=== PATIENT | male | born 1985 | race African-American/Black ===

== ENCOUNTER 2023-10-07 22:24 | Emergency (ER) | payer OTHER, SELFPAY ==
[2023-10-07] MEDS ORDERED: Acetaminophen 500 MG TAB ONE (22:45)
[2023-10-07] MEDS ORDERED: Ipratropium/Albuterol 3 ML NEB ONE (23:53)
== END 2023-10-08 00:08 | disposition home or self-care (01) ==
LOC: ERS 22:24
DX: S09.90XA Unspecified injury of head, initial encounter (principal); Y04.0XXA Assault by unarmed brawl or fight, initial encounter; F17.210 Nicotine dependence, cigarettes, uncomplicated
CPT/HCPCS: 70450; 94640; J7620